=== PATIENT | female | born 1985 | race Hispanic/Latino ===

== ENCOUNTER 2017-06-28 10:14 | Inpatient (IN) | payer BC ==
[2017-06-28] MEDS ORDERED: OXYTOCIN 10 USP UNITS/ML 20 UNIT in LACTATED RINGERS 1000ML 1,000 ML IV SCH (11:00)
[2017-06-28] MEDS: LACTATED RINGERS 1000ML 1,000 ML IV PRN ×3 (11:10→16:45)
[2017-06-28 11:12] LABS: HEMATOCRIT 29.2 % (36-48); MEAN CORPUSCULAR HEMOGLOBIN 28.8 pg (27.0-33.0); MEAN CORPUSCULAR HGB CONC 35.4 g/dL (32.0-36.0); MEAN CORPUSCULAR VOLUME 81.2 fL (79-99); PLATELET COUNT (AUTO) 253 K/uL (130-400); RED CELL DISTRIBUTION WIDTH 14.3 % (11.0-15.5); WHITE BLOOD COUNT (AUTO) 5.6 K/uL (4.8-10.8)
[2017-06-28] MEDS ORDERED: LACTATED RINGERS 1000ML 1,000 ML IV ONE ×2 (12:23→19:10)
[2017-06-28] MEDS ORDERED: OXYTOCIN-LR 20 UNITS/1000 ML 1,000 ML IV SCH (18:45)
[2017-06-28] MEDS ORDERED: MEASLES/MUMPS/RUBELLA VACCINE, LIVE 0.5 ML/VIAL SQ PRN (18:45)
[2017-06-28] MEDS ORDERED: LANOLIN 30GM OINTMENT TP PRN (18:45)
[2017-06-28] MEDS ORDERED: BENZOCAINE/LANOLIN/ALOE VERA 60 ML AEROSOL TP PRN (18:45)
[2017-06-28] MEDS ORDERED: ACETAMINOPHEN-CODEINE 300/30MG TAB PO PRN (18:45)
[2017-06-28] MEDS ORDERED: DIPH,PERTUSS(ACELL),TET VAC/PF 0.5 ML VIAL IM PRN (18:45)
[2017-06-28] MEDS ORDERED: WITCH HAZEL 1 PAD TP PRN (18:45)
[2017-06-28] MEDS ORDERED: HYDROCODONE/ACETAMINOPHEN 5/325 MG TAB PO PRN (18:45)
[2017-06-28] MEDS ORDERED: ACETAMINOPHEN 325 MG TAB PO PRN (18:45)
[2017-06-28] MEDS ORDERED: OXYTOCIN 10 USP UNITS/ML ONE (19:10)
[2017-06-28] MEDS: DOCUSATE SODIUM 100 MG CAP PO SCH (20:10)
[2017-06-28] MEDS: IBUPROFEN 800 MG TAB PO PRN (20:11)
[2017-06-28 21:01] VITALS: BP 122/78
[2017-06-28 23:31] VITALS: BP 111/70
[2017-06-29 03:08] VITALS: BP 113/57
[2017-06-29] MEDS: IBUPROFEN 800 MG TAB PO PRN ×2 (03:39→13:55)
[2017-06-29 07:32] LABS: HEPATITIS Bs ANTIGEN SCREEN P Negative (Negative)
[2017-06-29 08:19] VITALS: BP 108/70
[2017-06-29] MEDS: DOCUSATE SODIUM 100 MG CAP PO SCH (09:46)
[2017-06-29 11:24] VITALS: BP 100/65
[2017-06-29 15:32] VITALS: BP 110/66
== END 2017-06-29 18:50 | disposition home or self-care (01) | DRG 775 ==
LOC: LDH 10:14 → WSH 20:30
PROVIDERS: ADMIT Specialist; ATTEND Specialist
PROC: 10E0XZZ Delivery of Products of Conception, External Approach (ICD-10-PCS; principal; 2017-06-28)
PROC: 3E0R3BZ Introduction of Anesthetic Agent into Spinal Canal, Percutaneous Approach (ICD-10-PCS; 2017-06-28)
PROC: 00HU33Z Insertion of Infusion Device into Spinal Canal, Percutaneous Approach (ICD-10-PCS; 2017-06-28)
PROC: 3E0234Z Introduction of Serum, Toxoid and Vaccine into Muscle, Percutaneous Approach (ICD-10-PCS; 2017-06-28)
DX: O41.03X0 Oligohydramnios, third trimester, not applicable or unspecified (principal); O24.420 Gestational diabetes mellitus in childbirth, diet controlled; Z37.0 Single live birth; Z3A.37 37 weeks gestation of pregnancy; Z23 Encounter for immunization; Z96.659 Presence of unspecified artificial knee joint
CPT/HCPCS: 36415; 85027; 86156; 86592; 86850; 86870; 86900; 86901; 87340; 90707; 90715; A4314; J2590; J7120